=== PATIENT | male | born 1985 | race Caucasian/White ===

== ENCOUNTER 2023-12-14 22:13 | Emergency (ER) | payer OTHER, SELFPAY ==
[2023-12-14 22:18] VITALS: BP 122/75
[2023-12-15] MEDS: TORADOL 60 MG IM (00:04)
[2023-12-15 00:09] VITALS: BMI 30.2
--- NOTE | 2023-12-15 01:33 | ED.GENMED ---
History of Present Illness
General
Chief Complaint: Musculo-Skeletal Complaint
Source: patient
Exam Limitations: none
Time Seen by Provider: 12/14/23 23:18
Travel History
Have you had any contact with someone who has COVID-19?: No
Do you have any symptoms of coronavirus? Fever > 100 degrees, chills, cough, shortness of breath, sore throat, loss of taste or smell, muscle aches, or headache?: No
History of Present Illness
History of Present Illness:
Patient states he fell 3 weeks ago multiple times. Complaining of pain mostly with the left leg inserts into the pelvis but his whole body hurts including his low back and chest. He also states he has some ongoing headaches and hit his head.
States he was wearing a helmet. No vomiting no fever no photophobia no other complaints.
Past History
Past History
ED Past Medical History: Asthma, Psychiatric (Bipolar disorder) and Other (constipation)
ED Past Surgical History: None
Social History
Tobacco: Smoker
Alcohol: None
Personal: Single
Living: with family
Employment: Not employed
Review of Systems
Review of Systems
All Other Systems: Not applicable
Constitutional: Denies fever
Cardiac: Denies chest pain or syncope
ABD/GI: Denies abdominal pain
Phy Exam
Physical Exam
Physical Exam:
TRAUMA EXAM:
VITAL SIGNS: Vital signs reviewed, cooperative
DISTRESS: No active disease
EYES: Pupils reactive, no orbital trauma
NOSE: No deformity or epistaxis
FACE AND SCALP: No scalp or facial trauma, external canals no blood
NECK: Supple nontender
BACK: Back mild parascapular tenderness on the right
RESPIRATORY: No distress, breath sounds normal, no tender chest wall
CARDIAC: No murmur, pulses equal and strong
ABDOMEN: Soft nontender bowel sounds normal
SKIN: Skin intact no bleeding, color normal
EXTREMITIES: Mild pain at the groin on the left where the abductors inserted into the pelvis. No pain with hip rotation. All other extremities negative
NEUROLOGICAL: Alert, oriented, no motor deficits
PSYCH: Mood affect normal
Course
Orders/Labs/Results
Orders:
Orders
12/14/23 23:35
Crisis Consult Urgent
Reason for Consult: Depressed/seeking psychiatric help
Ketorolac [Toradol] 60 mg IM NOW STA
12/15/23 00:00
CT Head W/o Iv Contrast Urgent
Reason For Exam: trauma
12/15/23 00:05
CR Chest - 2 Views Urgent
Reason For Exam: trauma
CR Pelvis - 1 Or 2 Views Urgent
Reason For Exam: trauma
Vital Signs
Initial and Last Documented VS:
Initial Vital Signs
Temp Pulse Resp BP Pulse Ox
97.9 F 76 18 122/75 97
12/14/23 22:18 12/14/23 22:18 12/14/23 22:18 12/14/23 22:18 12/14/23 22:18
Last Documented Vital Signs
Temp Pulse Resp BP Pulse Ox
97.9 F 76 18 122/75 97
12/14/23 22:18 12/14/23 22:18 12/14/23 22:18 12/14/23 22:18 12/14/23 22:18
*Radiology
Radiology exam reviewed: preliminary read by ED provider (Negative) and radiology read reviewed (Negative)
*Pulse Oximetry
Patient hypoxic: no
*Critical Care Note
Total Time (30-74mins, 75-104mins- exclusive of procedures): Not Applicable
Update Note
Update Note:
From a trauma standpoint the patient is medically stable. Patient's girlfriend was asking whether this could have been a concussion which it may have been a mild concussion however again neurologically stable. Patient did raise the issue of
requesting crisis help for depression. We did get crisis involvement. He adamantly denied suicidal homicidal ideation. He is not showing any danger to self issues. Patient was seen by crisis and offered partial hospitalization and outpatient
management. Patient did seem somewhat angry that we could not offer him more for his ongoing pain although medically I cannot find a serious etiology for his pain. I advised Advil Motrin in addition to Tylenol and close follow-up.
ED Attending Note
-
Portions of this chart may have been created with voice recognition software.� Occasional wrong word or��sound alike� substitutions may have occurred due to the inherent limitations of voice recognition software.
Discharge Plan
Departure
Patient Disposition: Home (Routine Discharge)
Date of Disposition: 12/15/23
Time of Disposition: 01:33
Patient with high blood pressure during this ER visit?: Yes
Discharge Problem:
Multiple contusions, Hip contusions, Recent head injury, Possible concussion, Depression
Instructions: Depression, Adult (DC), Head Injury in Adults (DC), Contusion (DC), BLOOD PRESSURE
Prescriptions:
No Action
lithium carbonate 450 mg tablet extended release
450 mg PO BID Qty: 30 0RF
aripiprazole [Abilify] 10 mg tablet
10 mg PO DAILY Qty: 7 0RF
Referrals:
NONE,* [Family Provider] -
Activity Restrictions/Additional Instructions:
Advil or Motrin for pain
You could also take Tylenol
Follow-up with your primary physician or return here with ongoing or persistent symptoms
Follow-up as per the workers compensation attorney
Interventions
Interventions:
*General Assessment Last Done: 12/14/23 23:02
*ED COVID-19 Vaccine History Last Done: 12/14/23 23:02
ED-Musculoskeletal Assessment Last Done: 12/14/23 23:02
== END 2023-12-15 01:45 | disposition home or self-care (01) ==
LOC: EMR 22:13
PROVIDERS: EMERGENCY PHYSICIAN Emergency Medicine
DX: S70.02XA Contusion of left hip, initial encounter (principal); M54.50 Low back pain, unspecified; R07.9 Chest pain, unspecified; S09.90XA Unspecified injury of head, initial encounter; M79.605 Pain in left leg; R10.2 Pelvic and perineal pain; G44.309 Post-traumatic headache, unspecified, not intractable; W19.XXXA Unspecified fall, initial encounter; R03.0 Elevated blood-pressure reading, without diagnosis of hypertension; F32.A Depression, unspecified; J45.909 Unspecified asthma, uncomplicated; F31.9 Bipolar disorder, unspecified; F17.200 Nicotine dependence, unspecified, uncomplicated; R29.6 Repeated falls
CPT/HCPCS: 99284; 70450; 71046; 72170

== ENCOUNTER 2023-12-25 19:04 | Emergency (ER) | payer OTHER, SELFPAY ==
[2023-12-25 19:07] VITALS: BP 127/89
--- NOTE | 2023-12-25 19:33 | ED.GENMED ---
History of Present Illness
General
Chief Complaint: Chest Pain
Source: patient
Exam Limitations: none
Time Seen by Provider: 12/25/23 19:33
Travel History
Have you had any contact with someone who has COVID-19?: No
Do you have any symptoms of coronavirus? Fever > 100 degrees, chills, cough, shortness of breath, sore throat, loss of taste or smell, muscle aches, or headache?: No
History of Present Illness
History of Present Illness:
This patient was not examined. He was bedded in a department and came out of his room requesting a copy of his discharge instructions. He was verbally aggressive towards staff using foul language and raising his voice. He came up to my desk where
I was seated and asked me to print out his instructions from 2 weeks ago when he was seen here in the emergency department. I told him that he would need to be seen and evaluated and patient began arguing with his nurse. Patient was asked to be
respectful regarding his volume and his language and to go back into the room. He was refusing, standing at the desk and continuing to disrespects staff. We called security but before security got here he walked out of the department. Patient had
stable triage vital signs, an EKG that was nonischemic but was not fully examined or evaluated for his complaint. He eloped from the department
Past History
Past History
ED Past Medical History: Asthma, Psychiatric (Bipolar disorder) and Other (constipation)
ED Past Surgical History: None
Social History
Tobacco: Smoker
Alcohol: None
Personal: Single
Living: with family
Employment: Not employed
Phy Exam
Physical Exam
Physical Exam:
patient was not examined due to an elopement
Scores
Heart Score for Chest Pain Patients
STEMI patient?: Not applicable
Course
Orders/Labs/Results
Orders:
Orders
12/25/23 19:14
Electrocardiogram (*1) Urgent
Reason for Study: Chest Pain
EKG- Treatment ONCE
Vital Signs
Initial and Last Documented VS:
Initial Vital Signs
Temp Pulse Resp BP Pulse Ox
97.9 F 71 18 127/89 100
12/25/23 19:07 12/25/23 19:07 12/25/23 19:07 12/25/23 19:07 12/25/23 19:07
Last Documented Vital Signs
Temp Pulse Resp BP Pulse Ox
97.9 F 71 18 127/89 100
12/25/23 19:07 12/25/23 19:07 12/25/23 19:07 12/25/23 19:07 12/25/23 19:07
*Critical Care Note
Total Time (30-74mins, 75-104mins- exclusive of procedures): Not Applicable
ED Attending Note
-
Portions of this chart may have been created with voice recognition software.� Occasional wrong word or��sound alike� substitutions may have occurred due to the inherent limitations of voice recognition software.
Discharge Plan
Departure
Patient Disposition: Elopement
Date of Disposition: 12/25/23
Time of Disposition: 19:36
Prescriptions:
No Action
lithium carbonate 450 mg tablet extended release
450 mg PO BID Qty: 30 0RF
aripiprazole [Abilify] 10 mg tablet
10 mg PO DAILY Qty: 7 0RF
Interventions
Interventions:
*Risk Screen - Suicide Last Done: 12/25/23 19:10
*General Assessment Last Done: 12/25/23 19:10
*Neglect/Abuse Screening Last Done: 12/25/23 19:10
== END 2023-12-25 20:02 | disposition left against medical advice (07) ==
LOC: EMR 19:04
PROVIDERS: EMERGENCY PHYSICIAN Emergency Medicine
DX: R07.89 Other chest pain (principal); Z53.29 Procedure and treatment not carried out because of patient's decision for other reasons
CPT/HCPCS: 93005

== ENCOUNTER 2024-04-03 04:21 | Emergency (ER) | payer OTHER, SELFPAY ==
[2024-04-03 04:32] VITALS: BP 128/86
--- NOTE | 2024-04-03 06:15 | ED.GENMED ---
History of Present Illness
General
Chief Complaint: Back Pain
Time Seen by Provider: 04/03/24 06:15
Travel History
Have you had any contact with someone who has COVID-19?: No
Do you have any symptoms of coronavirus? Fever > 100 degrees, chills, cough, shortness of breath, sore throat, loss of taste or smell, muscle aches, or headache?: No
History of Present Illness
History of Present Illness:
HPI: The patient has multiple complaints
#1 low back pain�this is a chronic issue without any new direct trauma
#2 left foot pain at the base of the fifth metatarsal
#3 social situation�he is in the process of moving
#4 psychiatric illness�has history of bipolar disorder and has been evaluated by crisis in the past but denies harm or threat to self or others
#5 lower abdominal pain�this is chronic
#6 states he threw up blood once a few weeks ago�his vital signs are stable
#7 substance use
EXAM:
GENERAL: Well appearing in no distress
HEENT: Moist oral mucosa
CARDIOVASCULAR: No murmurs, normal heart rate, regular rhythm, No chest wall tenderness
PULMONARY: No respiratory distress, breath sounds are clear and equal
ABDOMEN: Soft with no peritoneal signs, no tenderness
NEUROLOGIC: Excellent strength all extremities, no coordination deficits
PSYCHIATRIC: The patient does seem to have evidence for bipolar disorder - has some tangential thoughts
EXTREMITIES: Nontender, no edema, moves all extremities equally
SKIN: No rash, no lesions
TIME OF INITIAL ENCOUNTER: 6:20 AM
NUMBER AND COMPLEXITY OF PROBLEMS ADDRESSED AT THE ENCOUNTER
� Chronic conditions affecting care: Bipolar disorder, substance abuse
� Acute Exacerbation and/or Progression of Chronic Illness: As above
� Differential Diagnosis includes: Exacerbation of mental illness, exacerbation of low back pain
AMOUNT AND/OR COMPLEXITY OF DATA TO BE REVIEWED AND ANALYZED
� I performed an independent evaluation of and my interpretation is:
EKG:
CT:
X-rays:
Laboratory Studies:
Other:
� Review of other/old records: I reviewed records�the patient was seen here 3 months ago by crisis at that time was given referrals for LVF as outpatient
� Clinical information was obtained by an independent historian: None needed
� Prescriptions/Medications Considered but not given: Declines narcotic analgesia
� Further testing considered but not performed: No back pain red flags to warrant imaging of the low back
RISK OF COMPLICATIONS AND/OR MORBIDITY OR MORTALITY OF PATIENT MANAGEMENT
� Social determinants of health affecting care: Is in the process of moving
� Discussion with other providers:
� Escalation of care including admission/observation vs risk of discharge considered: The patient primarily complains of low back pain amongst other complaints�he has no new direct trauma therefore we will hold off on any
imaging, he is afebrile with unremarkable vital signs. Will try Toradol. Recommended NSAIDs as an outpatient.
Past History
Past History
ED Past Medical History: Asthma, Psychiatric (Bipolar disorder) and Other (constipation)
ED Past Surgical History: None
Social History
Tobacco: Smoker
Alcohol: None
Personal: Single
Living: with family
Employment: Not employed
Phy Exam
Physical Exam
Physical Exam:
See HPI
Course
Orders/Labs/Results
Orders:
Orders
04/03/24 06:28
Ketorolac [Toradol] 30 mg IM NOW STA
Vital Signs
Initial and Last Documented VS:
Initial Vital Signs
Temp Pulse Resp BP Pulse Ox
98.5 F 78 16 128/86 99
04/03/24 04:32 04/03/24 04:32 04/03/24 04:32 04/03/24 04:32 04/03/24 04:32
Last Documented Vital Signs
Temp Pulse Resp BP Pulse Ox
98.5 F 78 16 128/86 99
04/03/24 04:32 04/03/24 04:32 04/03/24 04:32 04/03/24 04:32 04/03/24 04:32
*Critical Care Note
Total Time (30-74mins, 75-104mins- exclusive of procedures): Not Applicable
ED Attending Note
-
Portions of this chart may have been created with voice recognition software.� Occasional wrong word or��sound alike� substitutions may have occurred due to the inherent limitations of voice recognition software.
Discharge Plan
Departure
Patient Disposition: Home (Routine Discharge)
Date of Disposition: 04/03/24
Time of Disposition: 06:29
Patient with high blood pressure during this ER visit?: Yes
Discharge Problem:
Low back pain
Instructions: Low Back Pain (DC)
Prescriptions:
No Action
lithium carbonate 450 mg tablet extended release
450 mg PO BID Qty: 30 0RF
aripiprazole [Abilify] 10 mg tablet
10 mg PO DAILY Qty: 7 0RF
Referrals:
Rakesh Cotto MD [Family Provider] -
Activity Restrictions/Additional Instructions:
Please follow-up your primary care doctor. I recommend 3-4 [place] ibuprofen (Motrin) every 8 hours with food for a few days. Return here if worse.
Interventions
Interventions:
*Risk Screen - Suicide Last Done: 04/03/24 04:32
*General Assessment Last Done: 04/03/24 04:32
*Neglect/Abuse Screening Last Done: 04/03/24 04:32
Discharge Date and Time
Print Language: MALAWIAN
[2024-04-03] MEDS: TORADOL 30 MG IM (06:38)
== END 2024-04-03 06:54 | disposition home or self-care (01) ==
LOC: EMR 04:21
PROVIDERS: EMERGENCY PHYSICIAN Emergency Medicine; FAMILY PHYSICIAN Internal Medicine
DX: M54.59 Other low back pain (principal); M79.672 Pain in left foot; R10.30 Lower abdominal pain, unspecified; K92.0 Hematemesis; R03.0 Elevated blood-pressure reading, without diagnosis of hypertension; F31.9 Bipolar disorder, unspecified; F19.90 Other psychoactive substance use, unspecified, uncomplicated; J45.909 Unspecified asthma, uncomplicated; F17.200 Nicotine dependence, unspecified, uncomplicated
CPT/HCPCS: 99284; 96372

== ENCOUNTER 2024-12-08 07:13 | Emergency (ER) | payer OTHER, SELFPAY ==
[2024-12-08 07:20] VITALS: BP 119/74
[2024-12-08 07:37] LABS: Hematocrit 40.4 % (39.0-52.0); Hemoglobin 13.6 g/dL (13.0-18.0); Mean Corp Hgb Conc. 33.7 g/dL (33.0-37.0); Mean Corpuscular Hgb 30.4 pg (27.0-31.0); Mean Corpuscular Volume 90.2 fL (80.0-94.0); Mean Platelet Volume 9.3 fL (7.4-10.4); Platelet Count 259 10^3/uL (130-400); Red Blood Cell Count 4.48 10^6/uL (4.70-6.10); Red Cell Dist. Width 12.1 % (11.5-14.5)
[2024-12-08 08:12] LABS: ALT (SGPT) 30 U/L (0-50); AST (SGOT) 41 U/L (17-59); Albumin 4.7 g/dl (3.5-5.0); Alkaline Phosphatase 68 U/L (38-126); Blood Urea Nitrogen 22 mg/dl (9-20); Calcium 8.5 mg/dl (8.4-10.2); Carbon Dioxide 26 mmol/L (22-30); Chloride 102 mmol/L (98-107); Glucose 81 mg/dl (70-99); Potassium 4.5 mmol/L (3.5-5.1); Sodium 139 mmol/L (135-145); Total Bilirubin 0.6 mg/dl (0.2-1.3); Total Protein 7.6 g/dl (6.3-8.2); eGFR > 60.00
--- NOTE | 2024-12-08 09:22 | EDRN ---
Addendum entered by Jennifer Tyson RN 12/08/24 09:31:
Pt admits to drinking 3-4 drinks last night of beer and hard liquor, also to possibly using meth and marijuana. Pt is barely able to stay awake during conversation.
Original Note:
Pt denies homelessness just states he fell asleep in front of [facility]. Pt admits to abdominal pain. Pt states bottom of his feet are 'messed up.' Pt states he lives in [place]. Pt arrived to [facility] via walking. Pt states he does not have a license. Pt
dozing off during conversation w/ pt.
[2024-12-08 09:24] VITALS: BMI 28.4
[2024-12-08 09:29] VITALS: BP 123/68
--- NOTE | 2024-12-08 09:41 | ED.GENMED ---
History of Present Illness
General
Chief Complaint: Abdominal Pain
Time Seen by Provider: 12/08/24 09:17
History of Present Illness
History of Present Illness:
Patient is a 39-year-old male with history of ADHD, substance use presenting to the emergency department after he was found sleeping outside while up. Patient states that last night he drank about a 6 pack of beer and used both speed and weed. He
was so tired that he fell asleep outside of [facility]. This morning police found him and brought him in for further evaluation. He states that he does not feel drunk anymore. Denies any SI or HI. He initially complained of lower abdominal pain
however denied that for me. When I did bring it up he states that that is a chronic issue and is not bothering him today. He states that his biggest concern is that he is neglected his health for quite some time and would like to follow-up with a
primary care doctor. He has gone to detox before however would not like it at this time. He denies any feeling that he is going through withdrawal currently. He has no medical complaints. He does have a safe place to stay. He does state that he
is in multiple DUIs so a friend can come pick him up.
Past History
Past History
ED Past Medical History: Asthma, Psychiatric (Bipolar disorder) and Other (constipation)
ED Past Surgical History: None
Social History
Tobacco: Smoker
Alcohol: None
Personal: Single
Living: with family
Employment: Not employed
Phy Exam
Physical Exam
Physical Exam:
GENERAL: in no acute distress
HEENT: normocephalic, extraocular movements intact, moist oral mucosa
NECK: normal inspection
RESPIRATORY: no respiratory distress, clear to auscultation bilaterally
CARDIOVASCULAR: regular rate and rhythm
ABDOMEN/: soft, non-distended, non-tender to palpation, no rebound or guarding
EXTREMITIES: non-tender, no edema/swelling
NEUROLOGIC: awake and alert, moves all extremities
SKIN: warm
Course
Orders/Labs/Results
Orders:
Orders
12/08/24 07:30
CBC/No Diff [Complete Blood Count/No Diff] Urgent
Comprehensive Metabolic Panel Urgent
12/08/24 10:24
Case Management Consult ONCE
Case Management Consult: Discharge Planning
Abnormal Lab Results
12/08/24
07:30
RBC 4.48 L 10^6/uL
(4.70-6.10)
BUN 22 H mg/dl
(9-20)
12/08/24 07:30
12/08/24 07:30
Vital Signs
Initial and Last Documented VS:
Initial Vital Signs
Temp Pulse Resp BP Pulse Ox
98.4 F 84 18 119/74 100
12/08/24 07:20 12/08/24 07:20 12/08/24 07:20 12/08/24 07:20 12/08/24 07:20
Last Documented Vital Signs
Temp Pulse Resp BP Pulse Ox
98.4 F 79 16 123/68 100
12/08/24 07:20 12/08/24 09:29 12/08/24 09:29 12/08/24 09:29 12/08/24 09:29
MDM/Problems Addressed
Differential Diagnosis Includes:
Patient is a 39-year-old man with history of substance use disorder, bipolar disorder presenting to the emergency department after he was found asleep outside while well. Vitals are unremarkable and exam is reassuring. Likely patient fell asleep
secondary to intoxication. Patient does not have any signs of trauma or any medical complaints at this time. He did have completed prior to my evaluation which is unremarkable. Offered patient B cares or case management however he declined at
this time. Will give him follow-up for a primary care doctor and discharge patient.
*Critical Care Note
Total Time (30-74mins, 75-104mins- exclusive of procedures): Not Applicable
Update Note
Update Note:
On reevaluation patient resting comfortably. He is trying to get in touch with friends to pick him up. He did update me that he has a lump to his left axilla. As been ongoing for many months. No fevers chills. On exam he does have a small lump
under his left axilla that is flesh-colored. No associated redness warmth or edema. There is no fluctuance or induration. Has not been having any fevers or chills. Likely reactive lymph node as he does have 2 small pimples surrounding it. Does
not seem consistent with an abscess. Does not appear infected at this time. Discussed for patient to keep an eye out on it in case it does become infected.
Case management discussed with patient. He does state [facility] [place] friend [place] him up from there. I did discuss with patient that we could set him up with a ride especially that it is cold. However
patient states that he is going to warm up to the 50s and that he has a friend that will pick him up around 1. He does not want to stay in the emergency department much longer. Given that patient has no medical complaints at this time and does
have a safe place to go home to and is not intoxicated will discharge this time.
ED Attending Note
-
Portions of this chart may have been created with voice recognition software.� Occasional wrong word or��sound alike� substitutions may have occurred due to the inherent limitations of voice recognition software.
Discharge Plan
Departure
Patient Disposition: Home (Routine Discharge)
Date of Disposition: 12/08/24
Time of Disposition: 10:27
Patient with high blood pressure during this ER visit?: No
Discharge Problem:
Substance use disorder
Instructions: Alcohol use disorder - ED discharge instructions, Substance use disorder - ED discharge instructions
Prescriptions:
No Action
lithium carbonate 450 mg tablet extended release
450 mg PO BID Qty: 30 0RF
aripiprazole [Abilify] 10 mg tablet
10 mg PO DAILY Qty: 7 0RF
Referrals:
[facility] [Provider Group]
[facility] [Outside]
Rakesh Cotto MD [Family Provider] -
Interventions
Interventions:
*Risk Screen - Suicide Last Done: 12/08/24 07:20
*General Assessment Last Done: 12/08/24 09:25
*Neglect/Abuse Screening Last Done: 12/08/24 07:20
ED- Fall Risk Assessment Last Done: 12/08/24 09:27
*ED COVID-19 Vaccine History Last Done: 12/08/24 09:25
EY-Zndgec-Lkezjdoflp Assessment Last Done: 12/08/24 09:27
Discharge Date and Time
Print Language: KYRGYZ
--- NOTE | 2024-12-08 09:51 | EDRN ---
Pt needs to find a ride home at this time per Dr. Candelario and then can be discharged.
[2024-12-08 10:15] VITALS: BP 101/54
--- NOTE | 2024-12-08 10:17 | EDRN ---
Pt now complains of lump ? abscess in L axilla and another lump on R testicle. Pt states he has been unable to get a ride up til now. Pt more awake and w/ phone when this RN was in room.
--- NOTE | 2024-12-08 10:19 | EDRN ---
Dr. Bassett informed about pt's lumps.
--- NOTE | 2024-12-08 10:21 | EDRN ---
[employer] case operator called at this time to assist in getting pt a ride. Dr. Candelario was in to see pt.
--- NOTE | 2024-12-08 10:30 | CM ---
CM reviewed medical records. Patient is refusing ride assistance and plan for patient to walk to the [facility].
== END 2024-12-08 11:28 | disposition home or self-care (01) ==
LOC: EMR 07:13
PROVIDERS: Emergency Medicine; EMERGENCY PHYSICIAN Student in an Organized Health Care Education/Training Program; FAMILY PHYSICIAN Internal Medicine
DX: F19.90 Other psychoactive substance use, unspecified, uncomplicated (principal); F90.9 Attention-deficit hyperactivity disorder, unspecified type; J45.909 Unspecified asthma, uncomplicated; F31.9 Bipolar disorder, unspecified; K59.00 Constipation, unspecified; F17.200 Nicotine dependence, unspecified, uncomplicated
CPT/HCPCS: 99283; 80053; 85027

== ENCOUNTER 2024-12-17 16:13 | Emergency (ER) | payer OTHER, SELFPAY ==
[2024-12-17 16:16] VITALS: BP 113/81
[2024-12-17 16:42] LABS: % Basophils 0.5 % (0-2); % Eosinophils 2.7 % (0-6); % Immature Granulocytes 0.2 % (0-0.5); % Lymphocytes 16.8 % (20.5-51.1); % Neutrophils 71.8 % (42.2-75.2); Absolute Eosinophils 0.2 10^3/uL (0-0.7); Absolute Lymphocytes 1.4 10^3/uL (1.2-3.4); Absolute Monocytes 0.7 10^3/uL (0.1-0.6); Absolute Neutrophils 5.9 10^3/uL (1.4-6.5); Hematocrit 40.1 % (39.0-52.0); Hemoglobin 13.4 g/dL (13.0-18.0); Mean Corp Hgb Conc. 33.4 g/dL (33.0-37.0); Mean Corpuscular Hgb 30.5 pg (27.0-31.0); Mean Corpuscular Volume 91.1 fL (80.0-94.0); Mean Platelet Volume 8.9 fL (7.4-10.4); Nucleated Red Blood Cells % 0 % (-); Platelet Count 282 10^3/uL (130-400); White Blood Cell Count 8.2 10^3/uL (4.8-10.8)
[2024-12-17 16:58] LABS: ALT (SGPT) 28 U/L (0-50); AST (SGOT) 29 U/L (17-59); Albumin 3.8 g/dl (3.5-5.0); Alkaline Phosphatase 77 U/L (38-126); Blood Urea Nitrogen 25 mg/dl (9-20); Calcium 8.9 mg/dl (8.4-10.2); Carbon Dioxide 30 mmol/L (22-30); Chloride 104 mmol/L (98-107); Glucose 93 mg/dl (70-99); Potassium 4.5 mmol/L (3.5-5.1); Sodium 141 mmol/L (135-145); Total Bilirubin 0.2 mg/dl (0.2-1.3); Total Protein 6.4 g/dl (6.3-8.2); eGFR > 60.00
[2024-12-17 17:04] LABS: Troponin I < 0.012 ng/ml
[2024-12-17 18:08] VITALS: BMI 29.5
--- NOTE | 2024-12-17 18:27 | ED.GENMED ---
History of Present Illness
General
Chief Complaint: Chest Problem
Source: patient
Exam Limitations: none
Time Seen by Provider: 12/17/24 17:58
Nursing documentation reviewed up to this point in time: agreed with
History of Present Illness
History of Present Illness:
This a pleasant 39-year-old male that presents with bilateral axilla pain that has been present for the last 10 days. Patient states that the abscess on the right has been growing larger and larger to the point where it is causing him some chest
wall discomfort. Patient denies fever, chills, nausea or vomiting. Reports no other chest pain or shortness of breath. Patient states that the abscess on the left spontaneously drained and is a fraction of the size it used to be. He reports that
the abscess on the right has been enlarging causing him pain. Patient states that he is newly homeless. He went in front of a director workers compensation today and was found guilty of a DUI. Patient states that he does have a safe space to stay with friends. Patient
denies any recent alcohol use today. Does have a history of amphetamine abuse.
Past History
Past History
ED Past Medical History: Asthma, Psychiatric (Bipolar disorder) and Other (constipation)
ED Past Surgical History: None
Social History
Tobacco: Smoker
Alcohol: None
Personal: Single
Living: with family
Employment: Not employed
Review of Systems
Review of Systems
Allergies reviewed?: Yes
All Other Systems: ROS reviewed and negative except as documented in HPI and ROS
Skin: Reports other (Fluctuant mass in each axilla)
Psychiatric: Denies depression, anxiety or suicidal
Phy Exam
General Physical Exam
General Presentation: well appearing and mild distress
General age: appears stated age
General Skin: warm and dry
General Habitus: normal
General Mental: alert
General Hydration: appears well hydrated
ENT Exam
ENT Exam: EOMI, pharynx normal, neck supple and normocephalic
Eye Exam
Eye Exam: PERRL, cornea clear and conjunctiva normal
Cardiovascular Exam
Cardiovascular Exam: regular rate/rhythm, no edema, no murmur and normal peripheral pulses
Pulmonary Exam
Pulmonary Exam: lungs clear, no respiratory distress, no rales, no crackles, no rhonchi, no stridor, no wheezing and no cough
Gastrointestinal Exam
Gastrointestinal Exam: normal bowel sounds, non tender, soft, no organomegaly, no pulsatile mass and non distended
Neurological Exam
Neurological Exam: alert, oriented x3, no motor deficits and speech normal
Musculoskeletal Exam
Musculoskeletal Exam: full ROM and no edema
Skin Exam
Skin Exam: normal color, warm/dry, no rash, no petechia and other (Abscess in the right axilla that is approximately 4 cm x 4 cm. No surrounding erythema noted. No signs of cellulitis. On the left is a much smaller 0.5 cm x 0.5 cm area of
induration that patient states spontaneously drained recently. No signs of cellulitis.)
Psychiatric Exam
Psychiatric Exam: normal mood/affect
Course
Orders/Labs/Results
Orders:
Orders
12/17/24 16:20
Electrocardiogram (*1) Urgent
Reason for Study: Chest Pain
EKG- Treatment ONCE
12/17/24 16:32
Complete Blood Count/With Diff Urgent
Comprehensive Metabolic Panel Urgent
Troponin I Urgent
12/17/24 18:27
Sulfamethox./Trimethoprim Ds [Bactrim Ds 800 mg/160 mg] 1 tablet PO NOW STA
12/17/24 18:30
CR Chest - 2 Views Urgent
Comment:
Reason For Exam: right sided chest wall pain
12/17/24 18:34
Wound Culture [Wound/Abscess/Other Culture] Urgent
STACY Source: Abscess
Specimen Description:
Date Specimen was Collected: 12/17/24
Time Specimen was Collected: 18:35
Comment: right axilla
12/17/24 18:42
Encourage PO Hydration-Treatme ONCE
Abnormal Lab Results
12/17/24
16:32
RBC 4.40 L 10^6/uL
(4.70-6.10)
Absolute Monos (auto) 0.7 H 10^3/uL
(0.1-0.6)
Lymphocytes % 16.8 L %
(20.5-51.1)
BUN 25 H mg/dl
(9-20)
12/17/24 16:32
12/17/24 16:32
Vital Signs
Initial and Last Documented VS:
Initial Vital Signs
Temp Pulse Resp BP Pulse Ox
97.9 F 88 16 113/81 100
12/17/24 16:16 12/17/24 16:16 12/17/24 16:16 12/17/24 16:16 12/17/24 16:16
Last Documented Vital Signs
Temp Pulse Resp BP Pulse Ox
97.9 F 85 16 123/66 100
12/17/24 16:16 12/17/24 18:35 12/17/24 18:35 12/17/24 18:35 12/17/24 18:35
Procedures
Incision/Drainage/Joint Aspiration
Right Proximal Arm:
Anethesia: 1% Lidocaine
Preparation: cleaned with Hibiclens
Type of procedure: incise and drain
Nature of site: abscess
Description of abscess: greater than 3cm, complex and involves one area
Loculations broken up: Yes
How much fluid was obtained?: number in mls (20)
Fluid description: purulent and blood tinged
Treatment: packed with gauze
Additional information:
Procedure was for axillary abscess on the right. Axillary abscess on the left was not drained as it recently spontaneously ruptured and is in the process of healing at this time.
*EKG
Interpreted by ED Provider?: Yes
Comparison EKG: no changes
Heart Rate: 81
Rate: normal
Rhythm: sinus
[place]: normal axis
Interval: normal interval
Ischemia: non-specific ST changes
*Critical Care Note
Total Time (30-74mins, 75-104mins- exclusive of procedures): Not Applicable
Update Note
Update Note:
Patient is clinically not dehydrated but lab work shows that he is slightly dehydrated. He is drinking fluids. He drink a water bottle as well as 2 horacio ales and an apple juice
ED Attending Note
-
Portions of this chart may have been created with voice recognition software.� Occasional wrong word or��sound alike� substitutions may have occurred due to the inherent limitations of voice recognition software.
Discharge Plan
Departure
Patient Disposition: Home (Routine Discharge)
Date of Disposition: 12/17/24
Time of Disposition: 18:35
Patient with high blood pressure during this ER visit?: No
Discharge Problem:
Abscess of axilla, right, Abscess of axilla, left
Instructions: Skin abscess drainage - Discharge instructions, Wound care - ED discharge instructions
Prescriptions:
New
sulfamethoxazole-trimethoprim [Bactrim DS] 800-160 mg tablet
1 tab PO BID Qty: 20 0RF
No Action
lithium carbonate 450 mg tablet extended release
450 mg PO BID Qty: 30 0RF
aripiprazole [Abilify] 10 mg tablet
10 mg PO DAILY Qty: 7 0RF
Referrals:
Rakesh Cotto MD [Family Provider] -
Activity Restrictions/Additional Instructions:
As discussed, please return in approximately 3 days for packing change. Return to the ER with increased pain, fever, or any other concerning symptoms.
It was a pleasure meeting you and taking part in your care. We hope for your continued healing and wellness.
Please read discharge instructions in their entirety. However, they are for general education and may not describe your exact diagnosis at discharge. Information on your ER visit and medical conditions were discussed with you along with appropriate
follow up information...
If indicated, please take your medications as instructed and indicated on discharge paperwork.
Please schedule a follow up appointment as directed. Call to schedule an appointment
Please return to the emergency department with ANY change in, persisting, or worsening of symptoms. If any of your symptoms do not improve, or persist, or become more severe within 6-12 hours, please return to the emergency department for further
care.
Please return to the emergency department if you develop a headache, neck pain/stiffness, fever greater than 100.4F, chest pain, shortness of breath, persistent nausea, vomiting, slurred speech, difficulty walking, numbness/tingling, weakness, signs
of infection or any other symptoms that are worrisome to you.
If you have any questions or concerns please do not hesitate to call the Hospital at
Interventions
Interventions:
*Risk Screen - Suicide Last Done: 12/17/24 16:16
*General Assessment Last Done: 12/17/24 16:16
*Neglect/Abuse Screening Last Done: 12/17/24 16:16
*ED COVID-19 Vaccine History Last Done: 12/17/24 16:16
ED- Cardiac Assessment Last Done: 12/17/24 18:08
ED- Pulmonary Assessment Last Done: 12/17/24 18:08
Discharge Date and Time
Print Language: MARSHALLESE
[2024-12-17] MEDS: BACTRIM DS 800 MG/160 MG 1 TABLET PO (18:33)
[2024-12-17 18:35] VITALS: BP 123/66
== END 2024-12-17 20:17 | disposition home or self-care (01) ==
LOC: EMR 16:13
PROVIDERS: Student in an Organized Health Care Education/Training Program; EMERGENCY PHYSICIAN Student in an Organized Health Care Education/Training Program; FAMILY PHYSICIAN Internal Medicine
DX: L02.411 Cutaneous abscess of right axilla (principal); L02.412 Cutaneous abscess of left axilla; J45.909 Unspecified asthma, uncomplicated; F17.200 Nicotine dependence, unspecified, uncomplicated; Z59.01 Sheltered homelessness
CPT/HCPCS: 10061; 99284; 80053; 84484; 85025; 87070; 87147; 87186; 87205; 93005

== ENCOUNTER 2024-12-21 04:33 | Emergency (ER) | payer OTHER, SELFPAY ==
[2024-12-21 04:34] VITALS: BMI 26.6
[2024-12-21 04:42] VITALS: BP 146/102
--- NOTE | 2024-12-21 05:50 | ED.SKININJ ---
HPI-Injury
General
Chief Complaint: Skin Problem
Source: patient
Exam Limitations: none
Time Seen by Provider: 12/21/24 05:13
Nursing documentation reviewed up to this point in time: agreed with
History of Present Illness-Injury
Initial Injury comments:
Pleasant 39-year-old male presents to the emergency department with bilateral axillary abscesses. Who he was seen in the emergency department several days ago by myself. The rate axillary abscess was drained and packing was placed. Patient admits
to pulling the packing out after leaving the ER. He did not get his Bactrim refilled. He states he would like to the pharmacy where it was sent until Sunday. He requests that he get a paper prescription so he can fill the Bactrim medical [facility]
pharmacy. Patient is a currently homeless. He has no other complaints at this time.
Past History
Past History
ED Past Medical History: Asthma, Psychiatric (Bipolar disorder) and Other (constipation)
ED Past Surgical History: None
Social History
Tobacco: Smoker
Alcohol: None
Personal: Single
Living: with family
Employment: Not employed
Review of Systems
Review of Systems
Allergies reviewed?: Yes
All Other Systems: ROS reviewed and negative except as documented in HPI and ROS
Constitutional: Denies fever or fatigue
EENT: Reports no symptoms
Respiratory: Reports no symptoms
Cardiac: Reports no symptoms
ABD/GI: Reports no symptoms
: Reports no symptoms
Musculoskeletal: Reports no symptoms
Skin: Reports no symptoms
Neurological: Reports no symptoms
Endocrine: Reports no symptoms
Hematologic/Lymphatic: Reports no symptoms
Psychiatric: Reports anxiety
Skin Exam
Abscess
Proximal Arm:
Description of abscess: firm
Surrounding skin:: inflammed at abscess site (Indurated but not signs of cellulitis)
Phy Exam
General Physical Exam
General Presentation: well appearing and no apparent distress
General age: appears stated age
General Skin: warm and dry
General Habitus: normal
Pulmonary Exam
Pulmonary Exam: no respiratory distress and no rales
Skin Exam
Skin Exam: normal color, warm/dry and other (Abscess bilateral axillae. Right greater than left. Both nonfluctuant at this point.)
Course
Vital Signs
Initial and Last Documented VS:
Initial Vital Signs
Temp Pulse Resp BP Pulse Ox
98.2 F 102 18 146/102 99
12/21/24 04:42 12/21/24 04:42 12/21/24 04:42 12/21/24 04:42 12/21/24 04:42
Last Documented Vital Signs
Temp Pulse Resp BP Pulse Ox
98.2 F 102 18 146/102 99
12/21/24 04:42 12/21/24 04:42 12/21/24 04:42 12/21/24 04:42 12/21/24 04:42
*Critical Care Note
Total Time (30-74mins, 75-104mins- exclusive of procedures): Not Applicable
Update Note
Update Note:
Patient has had these abscesses open multiple times. I drained and evacuated the larger 1 on Sunday. At this point we will try antibiotics. Patient is currently housing challenged. He will get resources.
ED Attending Note
-
Portions of this chart may have been created with voice recognition software.� Occasional wrong word or��sound alike� substitutions may have occurred due to the inherent limitations of voice recognition software.
Discharge Plan
Departure
Patient Disposition: Home (Routine Discharge)
Date of Disposition: 12/21/24
Time of Disposition: 05:54
Patient with high blood pressure during this ER visit?: Yes
Discharge Problem:
Abscess
Instructions: Wound Care (DC), BLOOD PRESSURE, Skin Abscess
Prescriptions:
New
sulfamethoxazole-trimethoprim [Bactrim DS] 800-160 mg tablet
1 tab PO BID 10 Days Qty: 20 0RF
No Action
lithium carbonate 450 mg tablet extended release
450 mg PO BID Qty: 30 0RF
aripiprazole [Abilify] 10 mg tablet
10 mg PO DAILY Qty: 7 0RF
sulfamethoxazole-trimethoprim [Bactrim DS] 800-160 mg tablet
1 tab PO BID Qty: 20 0RF
Referrals:
[facility] [Provider Group]
[facility] [Outside]
[facility] [Outside]
NONE,* [Family Provider] -
Activity Restrictions/Additional Instructions:
Please fill your antibiotics as discussed.
[facility]- a system which provides a centralized intake and a coordinating assessment process for persons experiencing a housing/snf crisis in [facility]. The [facility] Call Center is staffed Sunday, Sunday, and Sunday from
8:30 AM to 7:30 PM. Sunday and 4:30 PM. The phone number is: .
Outreach Programs-
[facility] snf support the homeless: [phone]
Outreach care: [phone]
Projects for assistance in transitioning from homelessness: [phone]
Sunday breakfast rescue mission: [phone]
[facility] outreach program: [phone]
[facility] -[phone]
It was a pleasure meeting you and taking part in your care. We hope for your continued healing and wellness.
Please read discharge instructions in their entirety. However, they are for general education and may not describe your exact diagnosis at discharge. Information on your ER visit and medical conditions were discussed with you along with appropriate
follow up information...
If indicated, please take your medications as instructed and indicated on discharge paperwork.
Please schedule a follow up appointment as directed. Call to schedule an appointment
Please return to the emergency department with ANY change in, persisting, or worsening of symptoms. If any of your symptoms do not improve, or persist, or become more severe within 6-12 hours, please return to the emergency department for further
care.
Please return to the emergency department if you develop a headache, neck pain/stiffness, fever greater than 100.4F, chest pain, shortness of breath, persistent nausea, vomiting, slurred speech, difficulty walking, numbness/tingling, weakness, signs
of infection or any other symptoms that are worrisome to you.
If you have any questions or concerns please do not hesitate to call the Hospital at
Interventions
Interventions:
*Risk Screen - Suicide Last Done: 12/21/24 04:42
*General Assessment Last Done: 12/21/24 04:42
*Neglect/Abuse Screening Last Done: 12/21/24 04:42
*ED COVID-19 Vaccine History Last Done: 12/21/24 04:53
Discharge Date and Time
Print Language: HEBREW
== END 2024-12-21 06:33 | disposition home or self-care (01) ==
LOC: EMR 04:33
PROVIDERS: EMERGENCY PHYSICIAN Student in an Organized Health Care Education/Training Program
DX: L02.412 Cutaneous abscess of left axilla (principal); L02.411 Cutaneous abscess of right axilla; J45.909 Unspecified asthma, uncomplicated; F31.9 Bipolar disorder, unspecified; F17.200 Nicotine dependence, unspecified, uncomplicated; Z59.00 Homelessness unspecified
CPT/HCPCS: 99283

== ENCOUNTER 2025-01-16 02:08 | Emergency (ER) | payer OTHER, SELFPAY ==
[2025-01-16 02:22] VITALS: BP 155/115
--- NOTE | 2025-01-16 06:00 | ED.GENMED ---
History of Present Illness
General
Chief Complaint: Crisis Evaluation
Source: patient
Exam Limitations: none
Time Seen by Provider: 01/16/25 05:35
Nursing documentation reviewed up to this point in time: agreed with
History of Present Illness
History of Present Illness:
39-year-old male here for 'a safe place to stay '. He was seen by crisis. They gave him some resources. He stated that he did not want a wait for me to see him. I was able to watch him ambulate out of the department. I have seen him in the past
and I know that he is homeless. He told crisis that he needed a place to stay for the rest of the night while here. He has been here for several hours. He absolutely denies this homicidal or suicidal ideation, intent, or plan.
Past History
Past History
ED Past Medical History: Asthma, Psychiatric (Bipolar disorder) and Other (constipation)
ED Past Surgical History: None
Social History
Tobacco: Smoker
Alcohol: None
Personal: Single
Living: with family
Employment: Not employed
Review of Systems
Review of Systems
All Other Systems: Not applicable
Phy Exam
General Physical Exam
General Presentation: well appearing and no apparent distress
Pulmonary Exam
Pulmonary Exam: no respiratory distress and no cough
Musculoskeletal Exam
Musculoskeletal Exam: full ROM
Psychiatric Exam
Psychiatric Exam: anxious
Course
Orders/Labs/Results
Orders:
Orders
01/16/25 04:15
Crisis Consult Urgent
Reason for Consult: CRISIS
Vital Signs
Initial and Last Documented VS:
Initial Vital Signs
Temp Pulse Resp BP Pulse Ox
97.4 F 88 18 155/115 99
01/16/25 02:22 01/16/25 02:22 01/16/25 02:22 01/16/25 02:22 01/16/25 02:22
Last Documented Vital Signs
Temp Pulse Resp BP Pulse Ox
97.4 F 88 18 155/115 99
01/16/25 02:22 01/16/25 02:22 01/16/25 02:22 01/16/25 02:22 01/16/25 02:22
*Critical Care Note
Total Time (30-74mins, 75-104mins- exclusive of procedures): Not Applicable
ED Attending Note
-
Portions of this chart may have been created with voice recognition software.� Occasional wrong word or��sound alike� substitutions may have occurred due to the inherent limitations of voice recognition software.
Discharge Plan
Departure
Patient Disposition: Home (Routine Discharge)
Date of Disposition: 01/16/25
Time of Disposition: 06:04
Patient with high blood pressure during this ER visit?: Yes
Discharge Problem:
Anxiety
Instructions: Anxiety, Adult (DC), BLOOD PRESSURE
Prescriptions:
No Action
lithium carbonate 450 mg tablet extended release
450 mg PO BID Qty: 30 0RF
aripiprazole [Abilify] 10 mg tablet
10 mg PO DAILY Qty: 7 0RF
sulfamethoxazole-trimethoprim [Bactrim DS] 800-160 mg tablet
1 tab PO BID Qty: 20 0RF
sulfamethoxazole-trimethoprim [Bactrim DS] 800-160 mg tablet
1 tab PO BID 10 Days Qty: 20 0RF
Referrals:
[facility] [Active] -
UNKNOWN - PT DOES,NOT KNOW [Family Provider] -
Interventions
Interventions:
*Risk Screen - Suicide Last Done: 01/16/25 04:38
*General Assessment Last Done: 01/16/25 04:36
*Neglect/Abuse Screening Last Done: 01/16/25 04:36
*ED- Fall Risk Assessment Last Done: 01/16/25 04:36
*ED COVID-19 Vaccine History Last Done: 01/16/25 04:36
*Nursing Disposition Last Done: 01/16/25 06:11
ED-Psychological Assessment Last Done: 01/16/25 04:36
Discharge Date and Time
Discharge Date/Time: 01/16/25 06:12
Print Language: BELARUSIAN
== END 2025-01-16 06:12 | disposition home or self-care (01) ==
LOC: EMR 02:08
PROVIDERS: EMERGENCY PHYSICIAN Student in an Organized Health Care Education/Training Program
DX: F41.9 Anxiety disorder, unspecified (principal); R03.0 Elevated blood-pressure reading, without diagnosis of hypertension; F17.200 Nicotine dependence, unspecified, uncomplicated; Z59.00 Homelessness unspecified
CPT/HCPCS: 99283

== ENCOUNTER 2025-06-21 14:10 | Emergency (ER) | payer SELFPAY ==
[2025-06-21 14:16] VITALS: BP 124/88
[2025-06-21 16:36] VITALS: BMI 30.9
--- NOTE | 2025-06-21 16:37 | ED.GENMED ---
History of Present Illness
General
Chief Complaint: Social Service Referral
Time Seen by Provider: 06/21/25 16:03
History of Present Illness
History of Present Illness:
41-year-old male without significant past medical history presenting for social resources. Patient notes that he just got out of half-way and is homeless, has no food or housing. Denies any present acute medical complaints. He notes some general
feet discomfort from increased ambulation, otherwise denies any significant wounds. Denies fever. Denies chest pain or difficulty breathing or additional acute medical complaints
Past History
Past History
ED Past Medical History: Asthma, Psychiatric (Bipolar disorder) and Other (constipation)
ED Past Surgical History: None
Social History
Tobacco: Smoker
Alcohol: None
Personal: Single
Living: with family
Employment: Not employed
Phy Exam
Physical Exam
Physical Exam:
General: Well-appearing, no clinical signs of dehydration, nontoxic and in no acute distress
HEENT: protecting airway
Neck: appears supple
CV: Normal heart rate
Resp: No accessory muscle use, no increased work of breathing
Abd: No distention
Extremities: No deformities, no swelling
Neuro: alert, no focal neurologic deficit
: deferred
Rectal: deferred
Psych: Normal affect
Skin: Intact
Course
Vital Signs
Initial and Last Documented VS:
Initial Vital Signs
Temp Pulse Resp BP Pulse Ox
98 F 67 16 124/88 98
06/21/25 14:16 06/21/25 14:16 06/21/25 14:16 06/21/25 14:16 06/21/25 14:16
Last Documented Vital Signs
Temp Pulse Resp BP Pulse Ox
98 F 67 16 124/88 98
06/21/25 14:16 06/21/25 14:16 06/21/25 14:16 06/21/25 14:16 06/21/25 16:38
MDM/Problems Addressed
MDM/Problems Addressed:
40-year-old male without significant past medical history presenting for resources, homeless. Vital signs are normal.
On exam patient is well-kept, no acute distress. No acute medical complaints. Food provided. Patient is looking for resources for housing. Did try and reach out to case management, however have gone home for the day. Patient is calling a friend
for a ride and housing. Ultimately feel stable for discharge. Return precautions discussed.
*Pulse Oximetry
SaO2: 98
Oxygen Mode of Delivery: Room air
Patient hypoxic: no
*Critical Care Note
Total Time (30-74mins, 75-104mins- exclusive of procedures): Not Applicable
ED Attending Note
-
Portions of this chart may have been created with voice recognition software.� Occasional wrong word or��sound alike� substitutions may have occurred due to the inherent limitations of voice recognition software.
Discharge Plan
Departure
Prescriptions:
No Action
lithium carbonate 450 mg tablet extended release
450 mg PO BID Qty: 30 0RF
aripiprazole [Abilify] 10 mg tablet
10 mg PO DAILY Qty: 7 0RF
sulfamethoxazole-trimethoprim [Bactrim DS] 800-160 mg tablet
1 tab PO BID Qty: 20 0RF
sulfamethoxazole-trimethoprim [Bactrim DS] 800-160 mg tablet
1 tab PO BID 10 Days Qty: 20 0RF
Referrals:
NONE,* [Family Provider, Internal Medicine]
Interventions
Interventions:
*Risk Screen - Suicide Last Done: 06/21/25 14:18
*General Assessment Last Done: 06/21/25 16:37
*Neglect/Abuse Screening Last Done: 06/21/25 14:18
*ED- Fall Risk Assessment Last Done: 06/21/25 16:37
*ED COVID-19 Vaccine History Last Done: 06/21/25 16:37
ED-Psychological Assessment Last Done: 06/21/25 16:37
Discharge Date and Time
Print Language: MALAGASY
== END 2025-06-21 17:13 | disposition home or self-care (01) ==
LOC: EMR 14:10
PROVIDERS: EMERGENCY PHYSICIAN Student in an Organized Health Care Education/Training Program
DX: Z04.89 Encounter for examination and observation for other specified reasons (principal); J45.909 Unspecified asthma, uncomplicated; F17.200 Nicotine dependence, unspecified, uncomplicated; Z59.00 Homelessness unspecified; Z59.41 Food insecurity
CPT/HCPCS: 99282

== ENCOUNTER 2025-06-22 06:33 | Emergency (ER) | payer SELFPAY ==
[2025-06-22 06:34] VITALS: BP 129/72
--- NOTE | 2025-06-22 09:06 | EDRN ---
Case Management called at this time.
--- NOTE | 2025-06-22 09:15 | EDRN ---
Dr. Pickett in to see pt.
--- NOTE | 2025-06-22 09:15 | EDRN ---
Case Management is going in to see pt.
--- NOTE | 2025-06-22 09:21 | CM ---
Addendum entered by Kim Houston 06/22/25 14:39:
Checked in with pt, states he saw [facility], unsure if they have any resources for him. I [facility] homeless [facility] [place]. Pt states he needs to go where his security control room officer tells him to go, he is waiting to hear back from them.
Lyly MARTINS updated. CM available if needed.
Original Note:
CM received consult, reviewed chart and met with pt bedside in ED. Pt states [facility] about 10 days ago, was in for 4 months. Does not remember where he lived prior to that. Pt states [place] address in computer is old, no current.
Asked pt about his brother listed as contact in chart, he states he does not speak to his brother anymore.
Pt states he is looking for mental health inpatient services, Dr Pickett will consult crisis.
Pt given information for [email or web address].
[2025-06-22 10:06] VITALS: BMI 31.4
--- NOTE | 2025-06-22 11:46 | EDRN ---
Crisis was in to see pt and on finishing assessment said pt is not suicidal just looking for a place to stay. Pt did admit to taking meth and requested [facility] to see him for possible rehab.
[2025-06-22 11:51] VITALS: BP 131/87
--- NOTE | 2025-06-22 11:53 | EDRN ---
Pt asking to eat at this time. will get a boxed lunch.
--- NOTE | 2025-06-22 13:24 | ED.GENMED ---
History of Present Illness
General
Chief Complaint: Social Service Referral
Source: patient
Exam Limitations: none
Time Seen by Provider: 06/22/25 09:08
Nursing documentation reviewed up to this point in time: agreed with
History of Present Illness
History of Present Illness:
Note:
CHIEF COMPLAINT(S)
Seeking mental health assistance and experiencing a discomfort from a rash on legs due to prolonged walking.
HISTORY OF PRESENT ILLNESS
The patient is a 40-year-old female who presented to the emergency department seeking help with mental health issues. She reports being homeless and is attempting to access resources for mental health support, mentioning that the emergency
department is the only place he knows for assistance. Additionally, the patient complains of a rash on her legs, which she attributes to prolonged walking, causing skin rubbing between the legs. he declined a physical examination of the rash.
SOCIAL DETERMINANTS AFFECTING HEALTH
The patient is currently experiencing homelessness, which she describes as being 'on the streets' and faces financial difficulties, as he is trying to obtain money and resources such as a cellphone.
PHYSICAL EXAM
General: The patient appears in no acute distress but well-kept.
PROBLEM LIST
Acute Problems:
- Mental health concerns
- Rash on legs due to friction from prolonged walking
PLAN
The patient will be seen by case management to explore potential resources for mental health support and assistance with housing and financial issues. It was recommended to use Vaseline as a topical treatment to alleviate discomfort from the rash
caused by friction.
DIFFERENTIAL DIAGNOSIS
The Differential Diagnosis includes, in no particular order and is not limited to:
1. Contact dermatitis
2. Intertrigo
3. Mental health disorder
4. Cellulitis
5. Erythema
6. Psoriasis
7. Eczema
8. Fungal infection
9. Anxiety disorder
10. Depression
CARE-UPDATE
06/22/25 - 13:25
The patient is not suitable for discharge to home or rehab facilities due to current circumstances. There is no medical justification for hospital admission or continued emergency department treatment.
Disposition:
SUMMARY OF ENCOUNTER
The patient, a 40-year-old male, presented to the emergency department seeking assistance for mental health issues and reported a rash on his legs due to prolonged walking. he is currently experiencing homelessness and distress. The rash was
possibly due to friction between the legs, and he declined a physical examination.
DISPOSITION
Discharge to home.
ASSESSMENT
The patient is dealing with acute mental health concerns and a friction-related rash on the legs, exacerbated by his current social circumstances.
PLAN
The patient was referred to case management to access potential resources for mental health support and to address housing and financial issues. It was suggested to use Vaseline topically to relieve discomfort from the rash.
PATIENT EDUCATION AND COUNSELING
The patient was informed about the use of Vaseline for the rash and the importance of following up with case management for mental health and social support resources.
MEDICAL DECISION MAKING
-Complexity of Data Reviewed:
Chronic conditions affecting care include mental health concerns and rash on legs. Differential diagnosis includes: contact dermatitis, intertrigo, mental health disorder, cellulitis, erythema, psoriasis, eczema, fungal infection, anxiety disorder,
depression.
-Risk:
Care significantly affected by Social Determinants of Health: The patient is homeless with financial struggles.
DIAGNOSIS
R21 - Rash and other nonspecific skin eruption
Z59.0 - Homelessness
F99 - Mental disorder, not otherwise specified
Past History
Past History
ED Past Medical History: Asthma, Psychiatric (Bipolar disorder) and Other (constipation)
ED Past Surgical History: None
Social History
Tobacco: Smoker
Alcohol: None
Personal: Single
Living: with family
Employment: Not employed
Phy Exam
Physical Exam
Physical Exam:
.
Course
Orders/Labs/Results
Orders:
Orders
06/22/25 09:08
Case Management Consult ONCE
Case Management Consult: Other
Discharge Planning
Requested By:: PT/FAMILY
Comment: Pt seeking houseing, just released from custodial 10 days ago. Was here yesterday
unable to speak w/ case management as had left as shift ended.
Tentative Discharge Date: 06/22/25
06/22/25 09:10
Case Management Consult ONCE
Case Management Consult: Other
06/22/25 11:11
Crisis Consult Urgent
Reason for Consult: anxiety
06/22/25 11:39
Urine Drug Abuse Screen Urgent
Date Specimen was Collected: 06/22/25
Time Specimen was Collected: 13:20
Vital Signs
Initial and Last Documented VS:
Initial Vital Signs
Temp Pulse Resp BP
97.6 F 56 18 129/72
06/22/25 06:34 06/22/25 06:34 06/22/25 06:34 06/22/25 06:34
Last Documented Vital Signs
Temp Pulse Resp BP Pulse Ox
97.6 F 45 14 131/87 99
06/22/25 06:34 06/22/25 11:51 06/22/25 11:51 06/22/25 11:51 06/22/25 11:51
*Pulse Oximetry
SaO2: 99
Oxygen Mode of Delivery: Room air
Patient hypoxic: no
*Critical Care Note
Total Time (30-74mins, 75-104mins- exclusive of procedures): Not Applicable
ED Attending Note
-
Portions of this chart may have been created with voice recognition software.� Occasional wrong word or��sound alike� substitutions may have occurred due to the inherent limitations of voice recognition software.
Discharge Plan
Departure
Patient Disposition: Home (Routine Discharge)
Date of Disposition: 06/22/25
Time of Disposition: 13:27
Patient with high blood pressure during this ER visit?: Yes
Condition: Good
Discharge Problem:
Homeless
Prescriptions:
No Action
lithium carbonate 450 mg tablet extended release
450 mg PO BID Qty: 30 0RF
aripiprazole [Abilify] 10 mg tablet
10 mg PO DAILY Qty: 7 0RF
sulfamethoxazole-trimethoprim [Bactrim DS] 800-160 mg tablet
1 tab PO BID Qty: 20 0RF
sulfamethoxazole-trimethoprim [Bactrim DS] 800-160 mg tablet
1 tab PO BID 10 Days Qty: 20 0RF
Referrals:
NONE,* [Family Provider, Internal Medicine]
Interventions
Interventions:
*Risk Screen - Suicide Last Done: 06/22/25 06:34
*General Assessment Last Done: 06/22/25 10:07
*Neglect/Abuse Screening Last Done: 06/22/25 06:34
*ED- Fall Risk Assessment Last Done: 06/22/25 10:07
*ED COVID-19 Vaccine History Last Done: 06/22/25 10:07
ED-Psychological Assessment Last Done: 06/22/25 10:08
Discharge Date and Time
Print Language: UGANDAN
--- NOTE | 2025-06-22 13:27 | EDRN ---
Urine sent. NO boxed lunches in fridge for pt. Pt just asked again for something to eat.
--- NOTE | 2025-06-22 13:59 | EDRN ---
[facility] rep in to see pt at this time. Pt just received boxed lunch (just delivered to ED at this time.
--- NOTE | 2025-06-22 15:15 | EDRN ---
Attempted to call phone number given to me by [facility] merchandiser retail representative to call report to [facility]. unable to get through to anyone. Called telescope operator for assist and not able to get through as well. I attempted to call back [facility] person but no
one answered.
--- NOTE | 2025-06-22 15:25 | EDRN ---
This RN reached [facility] person who explained number is a fax number and this RN was to fax the infor. info prepared and faxed to [facility] at this time.
--- NOTE | 2025-06-22 16:01 | EDRN ---
Pt left prior to discharge through [facility] who were still working on his rehab. Pt not in room nor BR. Bracelet torn off and on top of a container in room. Bag of food and all pt belongings out of room.
== END 2025-06-22 16:07 | disposition home or self-care (01) ==
LOC: EMR 06:33
PROVIDERS: EMERGENCY PHYSICIAN Emergency Medicine
DX: R21 Rash and other nonspecific skin eruption (principal); Z59.00 Homelessness unspecified; J45.909 Unspecified asthma, uncomplicated; F31.9 Bipolar disorder, unspecified; K59.00 Constipation, unspecified; F17.200 Nicotine dependence, unspecified, uncomplicated; Z59.86 Financial insecurity
CPT/HCPCS: 99282; 80306; 80307

== ENCOUNTER 2025-08-01 06:18 | Emergency (ER) | payer MEDICAID, SELFPAY ==
--- NOTE | 2025-08-01 07:22 | ED.GENMED ---
History of Present Illness
General
Chief Complaint: Abdominal Symptoms
Source: patient and ambulance crew
Exam Limitations: none
Time Seen by Provider: 08/01/25 07:17
Nursing documentation reviewed up to this point in time: agreed with
History of Present Illness
History of Present Illness:
Note:
CHIEF COMPLAINT(S)
Upper respiratory symptoms, notably nasal congestion and discolored nasal discharge, with associated headaches.
HISTORY OF PRESENT ILLNESS
The patient is a 40-year-old male presenting with upper respiratory symptoms and significant headaches. He reports experiencing nasal congestion with yellow and green nasal discharge for the past week. Alongside this, he has been struggling with a
'lot of head congestion.' The symptoms seem to worsen overnight, affecting his ability to manage work this morning. The patient also reports intermittent fevers. He describes the headaches as 'chronic,' having persisted for approximately five years.
He mentions that these headaches typically do not respond to medication. The headache symptoms have significantly impaired his daily functioning.
ALLERGIES
The patient reports drug allergies to aspirin and lisinopril.
REVIEW OF SYSTEMS
- General: Intermittent fevers reported.
- Head: Chronic headaches reported, described as unresponsive to regular medication.
- Respiratory: Presence of nasal congestion and discolored nasal discharge.
PHYSICAL EXAM
General: Alert, no acute distress.
Skin: Warm, dry.
Head: Normocephalic, atraumatic.
Neck: Supple, trachea midline.
Eye Ears, nose, mouth and throat: Oral mucosa moist.
Cardiovascular: Normal peripheral perfusion, No edema.
Respiratory: Respirations are non-labored.
Gastrointestinal: Abdomen nondistended
Back: Normal range of motion, Normal alignment.
Musculoskeletal: Normal range of motion, normal strength.
Neurological: Alert and oriented to person, place, time, and situation, No focal neurological deficit observed.
Psychiatric: Cooperative, appropriate mood and affect.
PROBLEM LIST
- Acute: Upper respiratory symptoms, chronic headaches.
PLAN
1. Perform CT scan of the head to evaluate chronic headache symptoms.
2. Manage upper respiratory symptoms and chronic headaches considering the patients history and current symptomatology.
3. Monitor and address fever episodes as needed.
DIFFERENTIAL DIAGNOSIS
The Differential Diagnosis includes, in no particular order and is not limited to:
1. Sinusitis
2. Migraine headache
3. Tension headache
4. Cluster headache
5. Allergic rhinitis
6. Viral upper respiratory infection
7. Bacterial respiratory infection
8. Medication-overuse headache
9. Chronic sinusitis
10. Nasal polyps
Note:
CARE-UPDATE
08/01/25 - 08:15
Patient reassessment revealed no significant changes in neurological status. Imaging findings remain stable with no new abnormalities noted. No alterations to the treatment plan are required at this time. Continue monitoring and supportive care as
previously established.
Disposition:
SUMMARY OF ENCOUNTER
The patient presented to the emergency department with symptoms of nausea, vomiting, headache, and nasal congestion. The examination and symptoms suggest the headache is likely secondary to ethmoid sinusitis. Management included the decision to
treat with amoxicillin for potential bacterial sinusitis.
DISPOSITION
The patient is stable for discharge.
ASSESSMENT
The patients headache and congestion are likely related to ethmoid sinusitis.
PLAN
Treatment for ethmoid sinusitis with antibiotics. Provide discharge with instructions to follow up with primary care.
PATIENT EDUCATION AND COUNSELING
The patient was instructed on the symptoms and management of sinusitis, and the importance of completing the antibiotic course. Education on when to seek further medical attention if symptoms worsen was also provided.
FOLLOW-UP INSTRUCTIONS
The patient should follow up with their primary care provider.
MEDICATION RECONCILIATION
Prescribed amoxicillin for sinusitis.
MEDICAL DECISION MAKING
-Complexity of Data Reviewed: Chronic conditions affecting care include chronic headaches and potential bacterial respiratory infection. Differential diagnosis considered includes sinusitis, tension headache, and bacterial respiratory infection.
CRITICAL CARE TIME
Not applicable.
DIAGNOSIS
- Ethmoid Sinusitis (ICD-10: J01.20)
Past History
Past History
ED Past Medical History: Asthma, Psychiatric (Bipolar disorder) and Other (constipation)
ED Past Surgical History: None
Social History
Tobacco: Smoker
Alcohol: None
Personal: Single
Living: with family
Employment: Not employed
Phy Exam
Physical Exam
Physical Exam:
.
Course
Orders/Labs/Results
Orders:
Orders
08/01/25 07:13
Alcohol Urgent
Complete Blood Count/With Diff Urgent
Comprehensive Metabolic Panel Urgent
08/01/25 07:33
CT Head W/o Iv Contrast Urgent
Comment:
Reason For Exam: headache
0.9% Sodium Chloride 1000 ml [Nss] 1,000 ml IV BOLUS
Ketorolac [Toradol] 15 mg IV NOW STA
Ondansetron Injectable [Zofran] 4 mg IV NOW STA
Abnormal Lab Results
08/01/25
07:13
Abs Immat Gran (auto) 0.1 H 10^3/uL
(0-0.05)
Absolute Monos (auto) 0.8 H 10^3/uL
(0.1-0.6)
Immature Gran % 1.5 H %
(0-0.5)
Monocytes % 9.8 H %
(1.7-9.3)
Chloride 109 H mmol/L
(98-107)
Glucose 137 H mg/dl
(70-99)
08/01/25 07:13
08/01/25 07:13
Vital Signs
Initial and Last Documented VS:
Initial Vital Signs
BP
125/82
08/01/25 08:19
Last Documented Vital Signs
Temp BP Pulse Ox
97.9 F 124/76 96
08/01/25 10:56 08/01/25 10:00 08/01/25 10:45
*Pulse Oximetry
Oxygen Mode of Delivery: Room air
Patient hypoxic: no
*Critical Care Note
Total Time (30-74mins, 75-104mins- exclusive of procedures): Not Applicable
ED Attending Note
-
Portions of this chart may have been created with voice recognition software.� Occasional wrong word or��sound alike� substitutions may have occurred due to the inherent limitations of voice recognition software.
Discharge Plan
Departure
Patient Disposition: Home (Routine Discharge)
Date of Disposition: 08/01/25
Time of Disposition: 10:31
Patient with high blood pressure during this ER visit?: Yes
Condition: Good
Discharge Problem:
Acute ethmoidal sinusitis
Instructions: Sinusitis in adults, BLOOD PRESSURE
Prescriptions:
New
amoxicillin 500 mg capsule
500 mg PO TID Qty: 15 0RF
ondansetron 4 mg tablet,disintegrating
4 mg PO Q8H PRN (Reason: nausea and vomiting) 4 Days Qty: 10 0RF
No Action
lithium carbonate 450 mg tablet extended release
450 mg PO BID Qty: 30 0RF
aripiprazole [Abilify] 10 mg tablet
10 mg PO DAILY Qty: 7 0RF
sulfamethoxazole-trimethoprim [Bactrim DS] 800-160 mg tablet
1 tab PO BID Qty: 20 0RF
sulfamethoxazole-trimethoprim [Bactrim DS] 800-160 mg tablet
1 tab PO BID 10 Days Qty: 20 0RF
Referrals:
UNKNOWN - PT DOES,NOT KNOW [Family Provider]
Activity Restrictions/Additional Instructions:
Follow-up primary care return for any concerns
Interventions
Interventions:
*Risk Screen - Suicide Last Done: 08/01/25 06:50
*General Assessment Last Done: 08/01/25 06:50
*Neglect/Abuse Screening Last Done: 08/01/25 06:50
*ED- Fall Risk Assessment Last Done: 08/01/25 06:50
*ED COVID-19 Vaccine History Last Done: 08/01/25 06:50
*Nursing Disposition Last Done: 08/01/25 10:57
US-Yuauvg-Nhflvimrpj Assessment Last Done: 08/01/25 06:51
Discharge Date and Time
Discharge Date/Time: 08/01/25 10:57
Print Language: TONGAN
[2025-08-01 07:32] LABS: Hematocrit 43.2 % (39.0-52.0); Hemoglobin 14.9 g/dL (13.0-18.0); Mean Corp Hgb Conc. 34.5 g/dL (33.0-37.0); Mean Corpuscular Volume 87.6 fL (80.0-94.0); Nucleated Red Blood Cells % 0 % (-); Platelet Count 264 10^3/uL (130-400); Red Cell Dist. Width 12.5 % (11.5-14.5)
[2025-08-01 07:50] LABS: ALT (SGPT) 27 U/L (0-50); AST (SGOT) 27 U/L (17-59); Albumin 4.3 g/dl (3.5-5.0); Alkaline Phosphatase 74 U/L (38-126); Blood Urea Nitrogen 18 mg/dl (9-20); Calcium 9.4 mg/dl (8.4-10.2); Carbon Dioxide 25 mmol/L (22-30); Chloride 109 mmol/L (98-107); Glucose 137 mg/dl (70-99); Potassium 4.1 mmol/L (3.5-5.1); Sodium 141 mmol/L (135-145); Total Protein 7.2 g/dl (6.3-8.2); eGFR > 60.00
--- NOTE | 2025-08-01 08:00 | EDRN ---
When this RN attempts to interact or assess the patient he remains drowsy with incomprehensible mumbles needed to be prodded for information and lacks energy to raise arm to place BP cuff on. When Dr. Pickett entered the room patient became alert
and awake able to speak clearly and move all extremities. Then returns to lethargic state upon Dr. Pickett's departure from room.
[2025-08-01] MEDS: ZOFRAN 4 MG IV (08:14)
[2025-08-01] MEDS: NSS 1000 IV (08:14)
[2025-08-01] MEDS: TORADOL 15 MG IV (08:14)
[2025-08-01 08:19] VITALS: BP 125/82
[2025-08-01 09:00] VITALS: BP 129/73
[2025-08-01 10:00] VITALS: BP 124/76
== END 2025-08-01 10:57 | disposition home or self-care (01) ==
LOC: EMR 06:18
PROVIDERS: EMERGENCY PHYSICIAN Emergency Medicine
DX: J01.20 Acute ethmoidal sinusitis, unspecified (principal); Z88.8 Allergy status to other drugs, medicaments and biological substances; F17.200 Nicotine dependence, unspecified, uncomplicated; J45.909 Unspecified asthma, uncomplicated; Z88.6 Allergy status to analgesic agent
CPT/HCPCS: 96374; 96375; 96361; 99284; 70450; 80053; 82077; 85025